=== PATIENT | male | born 1955 | race Caucasian/White ===

== ENCOUNTER → 2023-04-23 07:01 | Outpatient (CLI) | payer MEDICARE, SELFPAY ==
--- NOTE | 2023-04-23 07:04 | DI.CT.S_ITS ---
PROCEDURE: CT LUNG LOW DOSE SCREENING INDICATIONS: 47 year smoking hx, screening CT TECHNIQUE: Noncontrast 2.0-2.5 mm thick sections acquired from the pulmonary apices to the posterior costophrenic angles. 7 mm thick axial MIP, and 5 mm coronal and sagittal reformats were then acquired. For radiation dose reduction, the following was used: automated exposure control, adjustment of mA and/or kV according to patient size. COMPARISON: None. FINDINGS: Image quality: Diagnostic, given the low radiation dose technique. Lungs and pleura: There is mild centrilobular emphysema with an apical predominance. Mild apical paraseptal emphysema is present as well. There is a 4 mm right upper lobe pulmonary nodule. No suspicious pulmonary nodules. Mediastinum: Heart size is normal. No pericardial effusion. No mediastinal adenopathy by size criteria. Thoracic aorta and central pulmonary arteries are normal in size. Esophagus is normal in caliber. No hiatal hernia. Bones and chest wall: No suspicious bony lesions. No vertebral body compression fractures. No axillary or supraclavicular adenopathy by size criteria. No thyroid nodules which require sonographic follow up, per consensus guidelines. Abdomen: There are multiple incompletely characterized hypodense lesions within the liver which likely represent hepatic cysts. Visualized upper abdomen solid organs and bowel loops appear normal in the absence of contrast. IMPRESSION: 1. No acute pulmonary radiopacities. No suspicious pulmonary nodules. 2. Probable hepatic cysts which are incompletely characterized. If further characterization is warranted, right upper quadrant ultrasound could be used. LUNG-RADS 2; [address] follow-up recommended. Dictated by: Meenu Damon M.D. on 04/23/2023 at 9:52 Approved by: Meenu Damon M.D. on 04/23/2023 at 9:56
[2023-04-23 08:39] LABS: Cholesterol 227 mg/dL (140-199); HDL Cholesterol 52 mg/dL (40-60); LDL Cholesterol Calculated 162 mg/dL (<100); Triglycerides 65 mg/dL (35-150)
[2023-04-23 09:39] LABS: Hep C Virus Ab w/Reflex Quant NEGATIVE s/c (NEGATIVE)
== END ==
PROVIDERS: PCP Family Medicine; Referring Provider Family Medicine; Visit Provider Family Medicine
DX: Z13.9 Encounter for screening, unspecified; Z72.0 Tobacco use; Z12.2 Encounter for screening for malignant neoplasm of respiratory organs
CPT/HCPCS: 36415; 71271; 80061; 86803

== ENCOUNTER → 2023-06-03 08:17 | Outpatient (CLI) | payer MEDICARE, SELFPAY ==
--- NOTE | 2023-06-03 08:18 | DI.US.S_ITS ---
PROCEDURE: US ABDOMEN LIMITED INDICATIONS: RUQ, further characterize hepatic lesions seen on CT TECHNIQUE: Real-time scanning was performed of the abdominal and retroperitoneal organs, with image documentation. COMPARISON: None. FINDINGS: Liver: Liver is normal in size and homogeneous in echotexture. Multiple anechoic cysts, a few which demonstrate thin linear septations. For example, the largest in the right hepatic lobe measures 1.5 x 1.7 x 1.5 cm with a septation. The largest in the left hepatic lobe measures 0.7 x 0.8 x 0.8 cm. Gallbladder: No stones or sludge. Normal wall thickness measuring 3 mm. No pericholecystic fluid. Biliary ducts: Intrahepatic bile ducts are non-dilated. Extrahepatic bile duct caliber measures 2 mm. Normal is 6-7 mm or less in diameter, or 10 mm or less post-cholecystectomy. Pancreas: Not well seen secondary to overlying bowel gas. IMPRESSION: 1. Multiple hepatic cysts, some of which are mildly complex thin linear septations. Recommend an MRI (liver mass protocol) for further characterization. 2. Normal gallbladder. No biliary ductal dilatation. Dictated by: Tyson Portillo M.D. on 06/03/2023 at 10:08 Approved by: Tyson Portillo M.D. on 06/03/2023 at 10:16
== END ==
PROVIDERS: PCP Family Medicine; Referring Provider Family Medicine; Visit Provider Family Medicine
DX: K76.89 Other specified diseases of liver (principal)
CPT/HCPCS: 76705

== ENCOUNTER → 2023-06-12 09:17 | Outpatient (CLI) | payer MEDICARE, SELFPAY ==
--- NOTE | 2023-06-12 09:18 | DI.MRI.S_ITS ---
PROCEDURE: MR ABDOMEN LIVER PROTOCOL INDICATIONS: US with multiple hepatic cysts TECHNIQUE: Coronal HASTE, axial 2D FLASH in- and [id number]; axial breath-hold T2 FSE. Dynamic axial VIBE during the administration of contrast; post-contrast coronal VIBE or 2D FLASH with fat saturation from the hepatic dome to the iliac crests. Optional diffusion weighted imaging and ADC may be performed. COMPARISON: [facility], US, US ABDOMEN LIMITED, 06/03/2023, 8:46. FINDINGS: Image quality: Diagnostic. Lung bases: Unremarkable. Liver: Multiple T2 hyperintense cystic lesions, most of which are simple, some which contain thin internal septations but no nodularity or suspicious enhancement. Suspected 5 mm flash filling hemangioma in segment 7 (series 8, image 33). Gallbladder: No gallstones or wall thickening. Biliary ducts: No biliary dilation. Pancreas: No ductal dilation. 6 mm T2 hyperintense cystic lesion with close association to the pancreatic duct, located within the body/tail junction of the pancreas (series 5, image 20). Additional punctate T2 hyperintense cystic lesions are located within the tail. Spleen: Size is within normal limits. Adrenal Glands: No adrenal nodules. Kidneys and Ureters: No hydronephrosis. No solid mass. No complex renal cystic lesion which requires follow up. Stomach and Bowel: Normal colonic caliber, without significant wall thickening. Peritoneum: No abnormal intraperitoneal fluid. No free air. Ventral Wall: No hernia. Abdominal Nodes: No retroperitoneal or mesenteric adenopathy by size criteria. Vessels: Aorta and inferior vena cava are normal in size. Bones: No aggressive osseous abnormality. IMPRESSION: Polycystic liver, without suspicious liver mass or complex cyst. No further follow-up is indicated. 6 mm T2 hyperintense cystic lesion with close association to the pancreatic duct, within the pancreatic body/tail junction. No associated nodularity. No ductal dilation. Findings favor a benign side branch IPMN. Yearly follow-up is recommended with MRI, per consensus guidelines. Dictated by: Pee Mcnair M.D. on 06/14/2023 at 9:51 Approved by: Pee Mcnair M.D. on 06/14/2023 at 10:00
== END ==
LOC: MRI 09:17
PROVIDERS: PCP Family Medicine; Referring Provider Family Medicine; Visit Provider Family Medicine
DX: K76.89 Other specified diseases of liver; K86.2 Cyst of pancreas
CPT/HCPCS: 74183; A9579